=== PATIENT | female | born 1985 | race Caucasian/White ===

== ENCOUNTER 2017-09-14 04:13 | Inpatient (IN) | payer OTHER ==
[~2017-09-14] VITALS: Ht 162.6 cm; Wt 121.1 kg
[2017-09-14 04:21] VITALS: BP 152/95
[2017-09-14] MEDS ORDERED: FLAGYL500 MG PO (04:24)
[2017-09-14 04:48] LABS: ABSOLUTE BASOPHILS 0.1 thou/uL (0.0-0.2); ABSOLUTE EOSINOPHILS 0.4 thou/uL (0.0-0.7); ABSOLUTE LYMPHOCYTES 2.7 thou/uL (0.8-5.3); ABSOLUTE MONOCYTES 0.6 thou/uL (0.0-1.2); ABSOLUTE NEUTROPHILS 4.2 thou/uL (1.6-8.1); BASOPHILS 0.8 %; EOSINOPHILS 4.5 %; HEMATOCRIT 40.7 % (37.0-47.0); HEMOGLOBIN 13.9 gm/dL (12.0-15.0); LYMPHOCYTES 33.9 %; MCH 27.8 pg (26.0-34.0); MCHC 34.1 g/dL (28.0-37.0); MCV 81.6 fL (80.0-100.0); MPV 8.8 fl. (7.2-11.1); NUCLEATED RBCS 0 /100WBC; PLATELET COUNT* 327 thou/uL (150-400); POLYS 53.8 %; RBC 4.99 mil/uL (4.20-5.00); RDW-CV 14.5 % (10.5-14.5); WBC 7.9 thou/uL (4.0-11.0)
[2017-09-14 04:56] LABS: CALCIUM 9.2 mg/dL (8.5-10.1); CREATININE 0.9 mg/dL (0.6-1.3); POTASSIUM 3.9 mmol/L (3.5-5.1)
[2017-09-14 05:00] LABS: ALBUMIN 3.3 g/dL (3.4-5.0); TOTAL BILIRUBIN 0.2 mg/dL (<0.1-1.0); TOTAL PROTEIN 7.3 g/dL (6.4-8.2)
[2017-09-14 05:19] LABS: URINE BILIRUBIN NEGATIVE (Negative); URINE BLOOD NEGATIVE (Negative); URINE CLARITY CLEAR; URINE COLOR YELLOW; URINE GLUCOSE-RANDOM NEGATIVE (Negative); URINE KETONES NEGATIVE (Negative); URINE LEUKOCYTES-REFLEX NEGATIVE (Negative); URINE NITRITE-REFLEX NEGATIVE (Negative); URINE PROTEIN NEGATIVE (Negative); URINE UROBILINOGEN 0.2 E.U./dl (0.2-1.0)
[2017-09-14 11:15] VITALS: BP 141/86
[2017-09-14 17:00] VITALS: BP 124/69
[2017-09-14 23:30] VITALS: BP 124/109
[2017-09-15] VITALS (7 sets, daily range): BP systolic 116–138; BP diastolic 64–83
[2017-09-15 04:35] LABS: ABSOLUTE EOSINOPHILS 0.1 thou/uL (0.0-0.7); ABSOLUTE LYMPHOCYTES 2.7 thou/uL (0.8-5.3); ABSOLUTE MONOCYTES 0.7 thou/uL (0.0-1.2); ABSOLUTE NEUTROPHILS 7.6 thou/uL (1.6-8.1); BASOPHILS 0.4 %; EOSINOPHILS 1.1 %; HEMOGLOBIN 12.4 gm/dL (12.0-15.0); LYMPHOCYTES 24.3 %; MCH 26.9 pg (26.0-34.0); MCHC 32.7 g/dL (28.0-37.0); MCV 82.3 fL (80.0-100.0); MONOCYTES 6.5 %; MPV 9.4 fl. (7.2-11.1); NUCLEATED RBCS 0 /100WBC; PLATELET COUNT* 284 thou/uL (150-400); POLYS 67.7 %; RBC 4.62 mil/uL (4.20-5.00); RDW-CV 14.4 % (10.5-14.5); WBC 11.2 thou/uL (4.0-11.0)
[2017-09-15 05:23] LABS: CALCIUM 8.4 mg/dL (8.5-10.1); CREATININE 0.8 mg/dL (0.6-1.3); POTASSIUM 4.1 mmol/L (3.5-5.1)
[2017-09-15] MEDS ORDERED: HYDROCODONE-AP1 EAC6 PO (10:16)
[2017-09-16 00:01] VITALS: BP 123/80
[2017-09-16 03:20] VITALS: BP 130/80
[2017-09-16 07:45] VITALS: BP 136/72
[2017-09-16] MEDS ORDERED: IBUPROFEN 600600 M1 PO (13:58)
--- NOTE | 2017-09-17 10:56 | S ---
[place] [address] SURGICAL PATH RPT PROCEDURE Name: HEIDE ABRAMS Room: [address] IN M.R.#: [id number] Admission: 09/14/17 Date of : 85 Discharge: 09/16/17 Report #: [id number] Path Case #: [id number] PATHOLOGY REPORT COLLECTION DATE: 09/14/2017 RECEIVED DATE: 09/16/2017 SUBMITTING PHYS: Dr. Mimi Beck OTHER PHYS: SPECIMEN(S) RECEIVED: A.Gallbladder * * * * * * * * * * * * FINAL DIAGNOSIS: Gallbladder: - Chronic cholecystitis, cholesterolosis and cholelithiasis. (MARGARITA:pit; 09/17/2017) PATHOLOGIST: Shreyas Laird M.D. REPORT ELECTRONICALLY SIGNED BY: Shreyas Laird M.D. DATE/TIME: 09/17/2017 10:56 * * * * * * * * * * * * GROSS PATHOLOGY: Received in formalin labeled "Heide Cruz, gallbladder" and consists of a glistening, pink, intact, 7.0 cm in length by 3.2 cm in diameter gallbladder. The margin is inked. There is a translucent round calculus lodged within the infundibulum that measures 1.2 cm in diameter. The wall averages 0.3 cm thick. The mucosa is craft, green, and vaguely velvety, and shows yellow flecks. Courseware Developer sections are submitted as A1. (RAFI; 09/16/2017) CLINICAL HISTORY: Cholecystitis INITIAL CPT CODE(S): A; 33524 Professional services performed by [facility] at [facility], [address] [place], [place] [address], [place] [address]. [facility] at [address] [place] [address], [address] [address]. [place] [address] SURGICAL PATH RPT PROCEDURE Name: ABRAMSHEIDE LAZ Room: [address] IN M..#: [id number] Admission: 09/14/17 Date of : 85 Discharge: 09/16/17 Report #: [id number] Path Case #: [id number] [address] PHONE: [phone] DIRECTOR: Ezio Alcocer M.D. * * * END OF REPORT * * *
--- NOTE | 2017-10-02 00:59 | OP ---
[facility] [address] [place] [address] OPERATIVE REPORT Name: HEIDE ABRAMS Room: [address] IN M.R.#: [id number] Admission: 09/14/17 Attend Phys: Mimi Beck MD Discharge: 09/16/17 Date of : 85 Report #: [id number] THIS REPORT FOR: //name// CC: Mimi Beck [facility] physician/PCP DATE OF SERVICE: 09/14/2017 PREOPERATIVE DIAGNOSES: 1. Acute cholecystitis. 2. Super morbid obesity. POSTOPERATIVE DIAGNOSES: 1. Acute cholecystitis. 2. Super morbid obesity. PROCEDURE: Laparoscopic cholecystectomy. SURGEON: Mimi Beck MD. UNDERCOVER AGENT: Phil Johnson DO. ESTIMATED BLOOD LOSS: 10 mL. COMPLICATIONS: None. FINDINGS: Critical view obtained. SPECIMENS: Gallbladder. ANESTHESIA: GET. DESCRIPTION OF PROCEDURE: Fully informed consent obtained preoperatively with full discussion of all risks, benefits and alternatives. Questions answered. The patient understood risk of bleeding, infection, reoperation, injury to surrounding structures including bowel or bile duct, bile duct leak, hernia, chronic pain, abscess and catastrophic complications up to including cardiopulmonary failure and . The patient understood and wished to proceed. She was taken to the operating room. We prepped and draped in standard sterile fashion, began with a 5 mm incision in the left upper quadrant, used Optiview technique to visualize all layers, entered safely into the abdomen. Abdomen was insufflated to 15 mmHg, placed additional ports, an 11 in the subxiphoid and supraumbilical area and two 5s in the right upper quadrant. The patient was placed head up and tilted to the left. Gallbladder was noted to be inflamed. It was grasped and retracted cranially and laterally. I began my dissection taking down significant amount of fat surrounding the triangle of [facility] [address] [place] [address] OPERATIVE REPORT Name: HEIDE ABRAMS Room: [address] IN [facility].#: [id number] Admission: 09/14/17 Attend Phys: Mimi Beck MD Discharge: 09/16/17 Date of : 85 Report #: [id number] [place]. At this point, I was able to dissect until I saw only 2 structures, the cystic artery and cystic duct entering into gallbladder. Cystic artery was triply clipped proximally, singly clipped distally, cut in between. Cystic duct was triply clipped proximally, singly clipped distally and cut. I viewed the clips, appeared to be completely across the duct and artery with good compression. I used cautery to begin taking down attachments from the gallbladder to the liver bed, achieving hemostasis along the way. There was a small amount of bile spillage at this point. Gallbladder was removed completely, placed in the EndoCatch bag. I did not see any stones that were leaked out. I irrigated copiously and suctioned out all bile until there was clear fluid. I again viewed liver bed and clips, they all appeared intact. I saw no other drainage. Next, I placed gallbladder in the EndoCatch bag, removed from the subxiphoid port. The 11 mm incisions were closed with 0 Vicryl using Ronnell-Shaan fashion and 4-0 Monocryl used to close the skin. Sterile dressing applied. Sponge, needle, instrument counts correct at the end of the case. The patient tolerated well. <ELECTRONICALLY SIGNED> By: Mimi Beck MD 10/02/17 0059 [id number] Beck MD /nt
== END 2017-09-16 14:45 | disposition home or self-care (01) | DRG 418 ==
LOC: M.ERS 04:13 → M.ORTHSURG 11:48 → M.TBA-ER 11:48 → M.ORTHSURG 15:10
PROVIDERS: Family Medicine; ADMIT Surgery
PROC: 0FT44ZZ Resection of Gallbladder, Percutaneous Endoscopic Approach (ICD-10-PCS; principal; 2017-09-14)
DX: K80.66 Calculus of gallbladder and bile duct with acute and chronic cholecystitis without obstruction (principal); Z68.45 Body mass index [BMI] 70 or greater, adult; E66.09 Other obesity due to excess calories; Z79.899 Other long term (current) drug therapy; Z88.2 Allergy status to sulfonamides

== ENCOUNTER 2017-10-07 17:06 | Emergency (ER) | payer OTHER ==
[~2017-10-07] VITALS: Ht 162.6 cm; Wt 121.1 kg
[~2017-10-07 17:06] MED LIST: FLAGYL500 MG PO; HYDROCODONE-AP1 EAC6 PO; IBUPROFEN 600600 M1 PO
[2017-10-07 17:57] LABS: ABSOLUTE BASOPHILS 0.1 thou/uL (0.0-0.2); ABSOLUTE EOSINOPHILS 0.5 thou/uL (0.0-0.7); ABSOLUTE LYMPHOCYTES 4.4 thou/uL (0.8-5.3); ABSOLUTE MONOCYTES 0.9 thou/uL (0.0-1.2); ABSOLUTE NEUTROPHILS 6.8 thou/uL (1.6-8.1); BASOPHILS 0.9 %; EOSINOPHILS 3.9 %; HEMATOCRIT 43.5 % (37.0-47.0); HEMOGLOBIN 14.3 gm/dL (12.0-15.0); LYMPHOCYTES 34.8 %; MCH 27.2 pg (26.0-34.0); MCHC 32.8 g/dL (28.0-37.0); MONOCYTES 6.8 %; MPV 8.8 fl. (7.2-11.1); NUCLEATED RBCS 0 /100WBC; PLATELET COUNT* 356 thou/uL (150-400); POLYS 53.6 %; RBC 5.25 mil/uL (4.20-5.00); RDW-CV 14.5 % (10.5-14.5); WBC 12.7 thou/uL (4.0-11.0)
[2017-10-07 18:04] LABS: CALCIUM 9.2 mg/dL (8.5-10.1); CREATININE 0.8 mg/dL (0.6-1.3)
[2017-10-07 18:09] LABS: ALBUMIN 3.7 g/dL (3.4-5.0); TOTAL BILIRUBIN 0.2 mg/dL (<0.1-1.0)
[2017-10-07 18:16] LABS: URINE BILIRUBIN NEGATIVE (Negative); URINE BLOOD NEGATIVE (Negative); URINE CLARITY CLEAR; URINE COLOR YELLOW; URINE GLUCOSE-RANDOM NEGATIVE (Negative); URINE KETONES NEGATIVE (Negative); URINE LEUKOCYTES-REFLEX NEGATIVE (Negative); URINE NITRITE-REFLEX NEGATIVE (Negative); URINE PROTEIN NEGATIVE (Negative); URINE SPECIFIC GRAVITY 1.025 (1.005-1.030); URINE UROBILINOGEN 0.2 E.U./dl (0.2-1.0)
[2017-10-07] MEDS ORDERED: PERCOCET PO (20:32)
[2017-10-07 20:41] VITALS: BP 132/81
== END 2017-10-07 20:42 | disposition home or self-care (01) ==
LOC: M.ERS 17:06
PROVIDERS: Nurse Practitioner Family
DX: K91.89 Other postprocedural complications and disorders of digestive system (principal); Z88.2 Allergy status to sulfonamides

== ENCOUNTER 2021-06-05 19:30 | Emergency (ER) | payer OTHER ==
[~2021-06-05] VITALS: Ht 162.6 cm; Wt 129.3 kg
[~2021-06-05 19:30] MED LIST changes: +PERCOCET PO
[2021-06-05 20:04] LABS: INFLUENZA A ANTIGEN Negative (Negative); INFLUENZA B ANTIGEN Negative (Negative)
[2021-06-05] MEDS ORDERED: DECADRON6 MG PO (20:18)
[2021-06-05 20:31] VITALS: BP 136/91
== END 2021-06-05 20:31 | disposition home or self-care (01) ==
LOC: M.ERS 19:30
PROVIDERS: Physician Assistant
DX: U07.1 COVID-19 (principal); Z88.2 Allergy status to sulfonamides; Z91.09 Other allergy status, other than to drugs and biological substances